=== PATIENT | male | born 1945 | race African-American/Black ===

== ENCOUNTER 2016-12-22 10:41 | Day surgery (SDC) | payer MEDICARE, OTHER ==
[2016-12-22] MEDS ORDERED: LIDOCAINE 2% INJ (20 MG/ML) 20 ML MDV ONE (11:41)
[2016-12-22] MEDS ORDERED: BUPIVACAINE HCL 0.5 % INJ/PF 30 ML SDV ONE (11:42)
[2016-12-22] MEDS ORDERED: POLYMYXIN B SULFATE INJ 500000 UNIT VIAL ONE (11:54)
[2016-12-22] MEDS ORDERED: NORMAL SALINE INJ/PF 0.9% 10 ML SDV ONE (11:54)
[2016-12-22] MEDS ORDERED: BACITRACIN INJ 50,000 UNIT VIAL ONE (11:55)
[2016-12-22 12:29] VITALS: BP 143/86
--- NOTE | 2016-12-22 13:22 | SURGICARE OPERATIVE REPORT E ---
[facility] Operative Report NAME: LULY BARNETT AGE: 71Y DATE OF SURGERY: ROOM: PREOPERATIVE DIAGNOSIS: Probable inclusion cyst of the first toe, left foot. POSTOPERATIVE DIAGNOSIS: Probable inclusion cyst of the first toe, left foot. OPERATION: Excision of soft tissue mass of the first toe of the left foot. SURGEON: FOREIGN SIMENTAL DPM BED CONTROL SPECIALIST: CHEKO MORA DPM PROCEDURE: On 12/22/16, the patient was admitted to [facility] with complaint of a painful great toe of his left foot. The patient was taken to the operating room where following injection of local anesthesia, the patient's left foot and leg were prepped and draped in the usual sterile manner. A tourniquet was placed at the proximal ankle malleoli. An Esmarch was applied. The tourniquet was inflated to the level of 200 mmHg for hemostasis. The Esmarch was removed. The following procedure was performed. Attention was directed to the distolateral aspect of patient's first toe of the left foot. There was a palpable mass approximately 3 cm x 4 cm just lateral and somewhat proximal to the great toenail. An incision was made starting from proximal dorsal extending plantar and distal in a curvilinear fashion, staying just plantar to the palpable mass. The incision was deepened through the subcutaneous tissue, the superficial fascia and all bleeding vessels were clipped, ligated and bovied as necessary for hemostasis. The incision was further deepened via sharp and blunt dissection. A flap was raised dorsally and dissection was further carried out with the blunt instrument. The white glistening mass that appeared to be an inclusion type cyst was identified and freed and removed from the wound in total. The area was flushed with copious amounts of sterile antibiotic solution, inspecting the soft tissue debrided with none being noted. It was felt that the entire mass had been excised at this time and no further dissection was required. At that time, the incision was closed with interrupted horizontal mattress suture of 5-0 nylon. A sterile dressing consisting of Negrito silk, 4 x 4s, [place], Kerlix and CoFlex was applied to the patient's left foot. The tourniquet was rapidly deflated. Capillary filling time was noted to be instantaneous to all digits. The patient appeared to tolerate surgery and anesthesia well and left the OR in apparent good condition with all vital signs stable and was taken to the recovery room for monitoring by the recovery staff. DICTATING PHYSICIAN: FOREIGN SIMENTAL DPM [id number] PHY#: [id number] ID: [id number] JOB#: [id number] ACCT: [id number] cc:FOREIGN SIMENTAL DPM >
== END 2016-12-22 13:45 | disposition home or self-care (01) ==
LOC: SC 10:41
PROVIDERS: ATTEND Preventive Medicine Undersea and Hyperbaric Medicine
PROC: 0JBR0ZZ Excision of Left Foot Subcutaneous Tissue and Fascia, Open Approach (ICD-10-PCS; principal; 2016-12-22 11:30)
DX: L72.0 Epidermal cyst (principal); E78.00 Pure hypercholesterolemia, unspecified; F32.9 Major depressive disorder, single episode, unspecified
CPT/HCPCS: 88304 ×2; 28039; J3490 ×4

== ENCOUNTER → 2017-09-14 | Outpatient (CLI) | payer MEDICARE, OTHER ==
--- NOTE | 2017-09-14 11:01 | RADIOLOGY REPORT (SQ) ---
EXAM DESCRIPTION: CT FACIAL AREA WITHOUT COMPLETED DATE/TIME: 09/14/2017 10:38 am REASON FOR STUDY: CHRONIC SINUSITIS (J32.9) COMPARISON: None. TECHNIQUE: Noncontrast scanning through the paranasal sinuses using bone algorithm. Reconstructed MPR images reviewed. All images stored on PACS. Images acquired for image guided surgery. All CT scanners at this facility use dose modulation, iterative reconstruction, and/or weight based d osing when appropriate to reduce radiation dose to as low as reasonably achievable (ALARA). [facility]: Dose Right [facility]: CareDose [facility]: Dose Right [facility]: Teradose 4D [facility]: Viddler RADIATION DOSE: 44.6 mGy. FINDINGS: NASAL PASSAGES: Clear. No polyps or masses. OSTEOMEATAL UNITS AND NASOFRONTAL DUCTS: Patent. Bilateral Beti cells are present. MAXILLARY SINUSES: Well-pneumatized and clear. Maxillary sinuses outlets are patent but narrowed by H aller cells on coronal images 20-23. ETHMOID SINUSES: Well-pneumatized and clear. SPHENOID SINUSES: Well-pneumatized and clear. Bilateral aerated sphenoethmoid air cells are present. Anterior clinoid is are pneumatized. No pneumatized pterygoid recess. No pneumatized dorsal sella. FRONTAL SINUSES: Well-pneumatized and clear. MASTOID AIR CELLS: Clear. ORBITS: Normal and symmetrical. NASAL SEPTUM: Mild rightward nasal septal deviation No nasal septal spurs. TEMPOROMANDIBULAR JOINTS: Normal. TURBINATES: No pneumatized turbinates. MUCOPERIOSTEAL THICKENING: No. MUCOCELE: No. OTHER: Mastoid air cells and middle ear cavities are clear. IMPRESSION: NO EVIDENCE OF ACUTE SINUSITIS. TECHNICAL DOCUMENTATION: JOB ID: [id number] Quality ID # [id number]: Final reports with documentation of one or more dose reduction techniques (e.g., Au tomated exposure control, adjustment of the mA and/or kV according to patient size, use of iterative reconstruction technique) 2010 [employer]- All Rights Reserved Reading location - IP/workstation name: [email or web address]
== END ==
LOC: RAD 10:17
PROVIDERS: ATTEND Internal Medicine
DX: J32.9 Chronic sinusitis, unspecified (principal)
CPT/HCPCS: 70486